=== PATIENT | female | born 1965 | race Two or more races ===

== ENCOUNTER 2023-01-26 16:30 | Emergency (ER) | payer OTHER ==
[~2023-01-26] VITALS: Ht 154.9 cm; Wt 67.7 kg
[~2023-01-26 16:30] MED LIST: ATEN-73 PO; HYDR25TA2 PO
[2023-01-26 16:34] VITALS: TEMP 98.8
[2023-01-26] MEDS ORDERED: METF-1185 PO (16:34)
[2023-01-26 17:34] LABS: APPEARANCE,URINE CLEAR (CLEAR); BILIRUBIN,URINE NEGATIVE (NEGATIVE); COLOR,URINE ORANGE (YELLOW); GLUCOSE, URINE (UA) NEGATIVE (NEGATIVE); KETONES,URINE NEGATIVE (NEGATIVE); LEUKOCYTE ESTERASE ,URINE SMALL (NEGATIVE); NITRATE,URINE NEGATIVE (NEGATIVE); OCCULT BLOOD,URINE LARGE (NEGATIVE); PROTEIN,URINE 30-70 mg/dL (NEGATIVE); SPECIFIC GRAVITIY, URINE 1.004 (1.003-1.030); UROBILINOGEN,URINE <=1.0 mg/dL (<=1.0)
[2023-01-26 17:37] LABS: BACTERIA,URINE Few /HPF (None Seen); RBC,URINE 51-100 /HPF (0-2); SQUAMOUS EPITHELIAL CELL,UR Few /LPF (None Seen)
[2023-01-26] MEDS ORDERED: PHEN-674 PO ×2 (17:48→21:07)
[2023-01-26] MEDS ORDERED: CEPH-558 PO ×2 (17:48→21:07)
[2023-01-26 18:32] VITALS: BP 142/85; PULSE 85; RESP 16
== END 2023-01-26 18:37 | disposition home or self-care (01) ==
LOC: EMS 16:31
DX: N39.0 Urinary tract infection, site not specified (principal); E11.9 Type 2 diabetes mellitus without complications; I10 Essential (primary) hypertension; Z90.710 Acquired absence of both cervix and uterus
CPT/HCPCS: 81001; 82962; 87086; 87186; 99283